=== PATIENT | female | born 1960 | race African-American/Black ===

== ENCOUNTER 2016-09-15 01:23 | Inpatient (IN) | payer OTHER ==
[2016-09-15] VITALS (7 sets, daily range): BP systolic 129–194; BP diastolic 65–95
[~2016-09-15] VITALS: Ht 167.6 cm; Wt 72.3 kg
--- NOTE | ~2016-09-15 | H ---
[facility] [place] [address] HISTORY AND PHYSICAL Name: JOSE BROWN Fariha Room #: 210-P [facility] IN .R.#: [id number] Admission: 09/15/16 Attend Phys: Shobha Eng MD Discharge: 09/19/16 Date of : 56 Report #: [id number] THIS REPORT FOR: //name// CC: Juana Eng DATE OF SERVICE: 09/15/2016 ATTENDING PHYSICIAN: Dr. Shobha Eng. PRIMARY CARE PHYSICIAN: Dr. Juana Tolentino. CHIEF COMPLAINT: Shortness of air and dizziness. HISTORY OF PRESENT ILLNESS: The patient is a 56-year-old female who came into the ER complaining of shortness of air and "panic attack". She says she started feeling poorly about 2 days ago. She was feeling dizzy all the time she would stand. She was having trouble breathing specifically whenever she would lie down. She denies any prior history of congestive heart failure. She is complaining of some neck tightness and upper back pain. She feels it came on because she has been having to lean forward to breathe easier. She has some episodes of nausea and vomiting with her dizziness in the last few days. Denies any cough or fevers. She denies any underlying lung disease and has never required home oxygen. She also has noted left leg swelling as well as some swelling up into her face which is new over the last month. She does take oral Lasix daily. He left leg has been painful and worse with trying to ambulate. She denies any prior history of DVT or PE. In the ER, she was given Lasix and has had only a small amount of urine output since. She is denying any chest pain. She does have a history of bilateral kidney transplant and her kidney function has been stable. PAST MEDICAL HISTORY: Left CVA, end-stage renal disease with bilateral kidney transplant, hypertension, diabetes type 1 which resolved when she got her kidney and pancreas transplant, GERD, hypothyroidism, peripheral neuropathy. PAST SURGICAL HISTORY: Bilateral kidney and pancreas transplant in 2004, left arm shunt, left breast biopsy, which was negative, appendectomy, tonsillectomy, , abdominal hernia repair. ALLERGIES: PENICILLIN AND MORPHINE. HOME MEDICATIONS: Levothyroxine 0.025 mg daily, Cozaar 25 mg daily, doxazosin 1 mg daily, clonidine 0.1 mg b.i.d., amlodipine 10 mg daily, Lasix 40 mg daily, Prempro 1 tab daily, Plavix 75 mg daily, aspirin 81 mg daily, calcium carbonate 1500 mg daily, prednisone 5 mg daily, Lipitor 10 mg daily, Pancrease one capsule q.i.d., Nexium 40 mg daily, Myfortic 540 mg b.i.d. and magnesium oxide [address] [address] HISTORY AND PHYSICAL Name: JOSE BROWN Room #: 210-P [facility] IN M.R.#: [id number] Admission: 09/15/16 Attend Phys: Shobha Eng MD Discharge: 09/19/16 Date of : 56 Report #: [id number]. SOCIAL HISTORY: The patient is a current smoker, smoking half pack of cigarettes per day. She has been smoking since the age of 13. Denies any alcohol or drug use. She lives at home with her 2 granddaughters that she adopted, one of which is special needs. FAMILY HISTORY: Her mother is alive and healthy at the age of 83, her father is alive in his 80s, but she does not know much about his medical history. REVIEW OF SYSTEMS: Twelve point review of systems was reviewed with the patient, otherwise negative unless stated in the HPI. PHYSICAL EXAMINATION: GENERAL: The patient is an alert female in no acute distress. VITAL SIGNS: Temperature is 36.6, heart rate 115, respirations 28, blood pressure is 194/84, oxygen 97% on 2 liters. HEENT: PERRLA. She does have some periorbital edema. Oral mucosa is pink and moist. NECK: Supple. There is no JVD noted. No cervical lymphadenopathy. CARDIOVASCULAR: Normal S1, S2. No murmurs, rubs or gallops. RESPIRATORY: Breath sounds are clear, bilateral upper lobes. She does have some fine crackles in bilateral bases. Breathing is nonlabored. ABDOMEN: Soft and is mildly tender throughout with positive bowel sounds. VASCULAR: She does have 2+ left pedal and lower extremity edema and some tenderness to the left calf. Pedal pulse is not palpable but her left foot is warm to touch. NEUROLOGIC: The patient is alert and oriented x 3. Speech is clear. She is moving all extremities equally. No focal weakness noted. SKIN: Intact. No rashes or lesions. LABORATORY AND DIAGNOSTIC DATA: WBC is 9.8, hemoglobin 12.8 and platelets 186. Sodium is 138, potassium 3.3, BUN 14, creatinine 1.5, glucose is 108, magnesium 1.5. LFTs are within normal limits. Troponin was elevated at 0.11. BNP is 10,995. INR 1.1. D-dimer is 0.74. UA is negative. Chest x-ray showed minimal vascular congestion and V/Q scan showed probability for PE. ASSESSMENT AND PLAN: 1. Acute fluid overload, question if this is new onset congestive heart failure. She does have significantly elevated BNP and some vascular congestion on chest x-ray. She was given a dose of IV Lasix in the ER. We will continue with few more doses of IV Lasix and check an echocardiogram. 2. Mildly elevated troponin, this is likely elevated due to congestive heart failure, we will check 2 more sets of enzymes and if her troponins increasing, we will consult Cardiology. She was given a dose of therapeutic Lovenox in the ER. She is denying any chest pain. Also check an echocardiogram. [facility] [address] [place] [address] HISTORY AND PHYSICAL Name: KEVINJOSE D Room #: 210-P [facility] IN [facility].#: [id number] Admission: 09/15/16 Attend Phys: Shobha Eng MD Discharge: 09/19/16 Date of : 56 Report #: [id number] 3. Left lower extremity edema with elevated D-dimer, we will check venous Dopplers to rule DVT. V/Q scan was negative for PE. She does have some claudication symptoms so we will also check arterial Dopplers on the left. 4. History of bilateral renal and pancreas transplants. Continue immunosuppressants and prednisone. She normally follows with Dr. Banks at [facility]. 5. Hypertension. Blood pressure was very elevated, likely due to fluid overload. We will continue with Lasix for diuresis and resume home medicines. She has had some recent blood pressure medication changes by her PCP. 6. Hypothyroidism. Check TSH level and continue Synthroid. 7. Hypokalemia and hypo-magnesium, electrolytes are being replaced. Follow labs. 8. Tobacco abuse. The patient has been advised to quit. 9. Deep vein thrombosis prophylaxis: Start Lovenox. We will continue to follow the patient closely throughout the hospitalization and make changes based on clinical status. <ELECTRONICALLY SIGNED> By: PRESTON Gaspar 09/23/16 0615 0848 1012 PRESTON Gaspar /nt
--- NOTE | ~2016-09-15 | 2DMMODE ---
[facility] [employer] [address] 2 D/M-MODE ECHOCARDIOGRAM Name: JOSE BROWN Room #: 210-P [facility] IN [facility]#: [id number] Admission: 09/15/16 Attend Phys: Shobha Eng MD Discharge: Date of : 56 Date of Service: 09/15/16 1646 Report #: [id number] THIS REPORT FOR: //name// APPROVED REPORT EXAM: Comprehensive 2D, Doppler, and color-flow Echocardiogram Patient Location: Echo lab/Inpatient Room 210 Blood Pressure: 167/95 mmHg HR: 96 bpm Other Information Study Quality: Adequate Indications Question CHF exacerbation. Hx: CVA, DM, HTN, tobacco abuse 2D Dimensions RVDd: 26.86 mm LVEF(%): 44.18 (>50%) IVSd: 13.82 (7-11mm) LVOT Diam: 18.98 (18-24mm) LVDd: 52.19 mm PWd: 13.58 (7-11mm) Ascending Aorta: 24.89 mm LVDs: 40.69 (25-40mm) Aortic Root: 27.00 mm Lyn's LVEF: 44.18 % Volumes Left Atrial Volume (Systole) Single Plane 4CH: 54.04 mL Single Plane 2CH: 58.06 mL LA ESV Index: 32.00 mL/m2 Aortic Valve AoV Peak Dann.: 1.67 m/s AO Peak Gr.: 11.16 mmHg LV Max P.23 mmHg LV Max: 1.25 m/s Mitral Valve MV PHT: 59.80 ms MV E Max Dann.: 1.37 m/s E/A Ratio: 1.1 MV A Dann.: 1.23 m/s MV Decel. Time: 206.20 ms Pulmonary Valve PV Peak Dann.: 1.06 m/s PV Peak Gr.: 4.53 mmHg [facility] [employer] [address] 2 D/M-MODE ECHOCARDIOGRAM Name: JOSE BROWN Room #: 210-P [facility] IN ..#: [id number] Admission: 09/15/16 Attend Phys: Shobha Eng MD Discharge: Date of : 56 Date of Service: 09/15/16 1646 Report #: [id number] Tricuspid Valve RAP Estimate: 5.00 mmHg Left Ventricle The left ventricle is normal size. Regional wall motion abnormalities are noted. Mild to moderate concentric left ventricular hypertrophy. Left ventricular systolic function is mildly decreased. LVEF is 40-45%. Grade II - pseudonormal filling dynamics. Right Ventricle The right ventricle is normal size. The right ventricular systolic function is normal. Atria The left atrium size is normal. The right atrium size is normal. Aortic Valve Aortic valve is mildly thickened and calcified. No aortic regurgitation is present. There is no aortic valvular stenosis. Mitral Valve Mitral valve leaflets are mildly thickened. Moderate mitral regurgitation. Tricuspid Valve The tricuspid valve is normal in structure. There is no tricuspid valve regurgitation noted. Pulmonic Valve The pulmonary valve is normal in structure. Trace pulmonic regurgitation. Great Vessels The aortic root is normal in size. The ascending aorta is normal in size. IVC is normal in size and collapses >50% with inspiration. Pericardium Small anterior pericardial effusion noted. <Conclusion> The left ventricle is normal size. Mild to moderate concentric left ventricular hypertrophy. [facility] [place] [address] 2 D/M-MODE ECHOCARDIOGRAM Name: JOSE BROWN Room #: 210-P [facility] IN .R.#: [id number] Admission: 09/15/16 Attend Phys: Shobha Eng MD Discharge: Date of : 56 Date of Service: 09/15/161645 Report #: [id number] LVEF is 40-45%. Aortic valve is mildly thickened and calcified. Mitral valve leaflets are mildly thickened. Moderate mitral regurgitation. Trace pulmonic regurgitation. <ELECTRONICALLY SIGNED> By: Ernesto Hinojosa MD 09/15/161645 45 45 Ernesto Hinojosa MD /INF
--- NOTE | ~2016-09-15 | CATHLAB ---
[facility] [employer] [place] [address] INVASIVE PROCEDURE REPORT Name: JOSE BROWN Room #: 210-P [facility] IN [facility]#: [id number] Admission: 09/15/16 Attend Phys: Shobha Eng MD Discharge: 09/19/16 Date of : 56 Date of Service: 09/17/16 1144 Report #: [id number] THIS REPORT FOR: //name// CC: Juana Eng DATE OF SERVICE: 09/17/2016 INDICATIONS: Positive troponins, ischemic cardiomyopathy. Full risks, benefits and alternatives of cardiac catheterization were explained to the patient. All questions were answered. Informed consent was obtained. There was a 5-Guamanian sheath in the right femoral artery, inserted by Dr. Escobedo for his peripheral angiogram procedure. CORONARY ANATOMY: The left main is a short segment, with no flow-limiting lesions. The LAD has a severe stenosis in the proximal LAD, extending into the mid segment of the LAD. The blockage is approximately 70%. The second diagonal artery is a small caliber vessel with severe disease in the proximal segment, 70%. The first obtuse marginal artery is a moderate size caliber vessel with a severe stenosis in the proximal segment, 70%. The left circumflex artery has a severe stenosis in the proximal segment, at least 70%. The RCA is a dominant vessel with a total occlusion in the mid segment. The distal RCA and its branches are filled via collateral circulation from the left coronary artery. The LVEDP is approximately 36 mmHg. There is no gradient across the outflow tract. A ventriculogram was not performed in view of an elevated creatinine level. IMPRESSION: 1. Severe 3-vessel disease. 2. Mild to moderate left ventricular dysfunction. 3. Recommend a surgical consultation. <ELECTRONICALLY SIGNED> By: Yair Crandall MD 09/21/16 0758 1144 1849 Yair Crandall MD /nt
--- NOTE | ~2016-09-15 | HC ---
[facility] [place] [address] CONSULTATION Name: KEVINJOSE Room #: 210-P [facility] IN ..#: [id number] Admission: 09/15/16 Attend Phys: Shobha Eng MD Discharge: Date of : 56 Report #: [id number] THIS REPORT FOR: //name// CC: Dell Eng DATE OF ADMISSION: 09/15/2016. REASON FOR CONSULTATION: Simultaneous kidney pancreas transplant with patient in respiratory distress. HISTORY OF PRESENT ILLNESS: This 56-year-old female has a longstanding history of type 1 diabetes mellitus dating to age 4. She was managed with insulin for a long period of time. She underwent simultaneous pancreas kidney transplant at [facility] in 2004. She has done well since that time with good attention to medications, diet and general medical management. The patient reports that she developed shortness of breath with an acute anxiety syndrome on the night of admission and presented to the Emergency Room for evaluation. She was found to have moderate vascular congestion on chest x-ray and was admitted for further evaluation and treatment. The patient denies recent renal difficulties. She reports that she has been watching her diet carefully as is her practice. PAST MEDICAL HISTORY: Is otherwise remarkable as described above for K 2004. She has a longstanding history of hypertension, she has type 1 diabetes mellitus dating to the age of 4. She has chronic constipation. She has had a previous CVA and has known hypothyroidism as well as peripheral neuropathy. She has undergone previous left breast biopsy with negative findings. PAST SURGICAL HISTORY: She is status post previous appendectomy, tonsillectomy, and abdominal hernia repair. ALLERGIES: Reported to PENICILLIN AND MORPHINE. MEDICATIONS: On admission include tacrolimus 5 mg b.i.d., prednisone 5 mg daily, Myfortic 540 mg daily, Cozaar 25 mg daily, doxazosin 1 mg daily, clonidine 0.1 mg b.i.d., amlodipine 10 mg daily, Lasix 40 mg daily, Prempro 1 tablet daily, Plavix 75 mg daily, aspirin 81 mg daily, calcium carbonate 1500 mg daily, Lipitor 10 mg daily, Pancreas one capsule q.i.d., Nexium 40 mg daily, Magnesium oxide 400 mg daily. PERSONAL HISTORY AND SOCIAL HISTORY: The patient is an ongoing smoker, describes half pack of cigarettes daily. She denies alcohol or substance abuse. [address] [address] CONSULTATION Name: NIEVES BROWNTRAVIS Fried Room #: 210-P [facility] IN ..#: [id number] Admission: 09/15/16 Attend Phys: Shobha Eng MD Discharge: Date of : 56 Report #: [id number] She lives with her 2 granddaughters. FAMILY HISTORY: Remarkable for her mother being alive and healthy at the age of 83. REVIEW OF SYSTEMS: Is remarkable for shortness of breath and anxiety as described in the history of present illness. She denies fevers, chills, sweats, productive cough, hemoptysis, chest pain, nausea, vomiting, diarrhea or constipation. PHYSICAL EXAMINATION: GENERAL: Reveals a well-developed, well-nourished female appearing her stated age, in no acute distress. VITAL SIGNS: Blood pressure 167/95, temperature 98.3, pulse 99, respirations 18. SKIN: Warm and dry. There is a trace pitting pretibial edema bilaterally. There is no evidence of palpable cords. EXTREMITIES: There is no clubbing, cyanosis or adenopathy present. HEENT: The head is normocephalic and atraumatic. The sclerae are white. Conjunctivae are not injected. Pharynx is benign. NECK: Supple. LUNGS: Leigh reveal scattered rhonchi without evidence of consolidation or crackles heard. CARDIOVASCULAR: Reveals a regular rate and rhythm without rub. ABDOMEN: Soft and nontender without palpable mass or organomegaly. The transplant is of normal character in the right lower quadrant without tenderness. NEUROLOGIC: Reveals the patient to be alert and cooperative with a nonfocal exam. LABORATORY STUDIES: Available at the time of evaluation include sodium 138, potassium 3.3, chloride 102, CO2 22, BUN 14, creatinine 1.5, glucose 108, albumin 3.5, troponin 0.11. White blood cell count 9800, hemoglobin 12.8, hematocrit 38.0, platelet count 186,000. Urinalysis reveals clear yellow urine, specific gravity less than 1.005, pH 6, negative for glucose, ketones, bilirubin and blood. ASSESSMENT: 1. Shortness of breath with chest x-ray evidence of modest vascular congestion and minimal peripheral edema. The patient's renal function is relatively stable and she reports good dietary attention to sodium restriction. I would be concerned given her multiple risk factors about the possibility of occult coronary artery disease given her longstanding risk years. Echocardiogram is pending at the time of this dictation. I find no major physical examination abnormalities of her cardiovascular system at this point. 2. Status post simultaneous kidney pancreas transplant. [address] [address] CONSULTATION Name: JOSE BROWN Room #: 210-P [facility] IN M.R.#: [id number] Admission: 09/15/16 Attend Phys: Shobha Eng MD Discharge: Date of : 56 Report #: [id number] 3. Longstanding hypertension. 4. Diabetes mellitus since age 4. 5. Status post previous cerebrovascular accident. PLAN: Cardiac evaluation as above. We will administer intravenous diuretic therapy and monitor her renal function. She is receiving potassium replacement at this time. I will continue to monitor her transplant organ function and I have confirmed her immunosuppression regimen with the transplant institute at [facility]. Please see orders. <ELECTRONICALLY SIGNED> By: Romel Lee MD 09/16/16 1303 1104 1210 Romel Lee MD /nt
--- NOTE | ~2016-09-15 | HC ---
[facility] [place] [address] CONSULTATION Name: JOSE BROWN Room #: 210-P [facility] IN ..#: [id number] Admission: 09/15/16 Attend Phys: Shobha Eng MD Discharge: Date of : 56 Report #: [id number] THIS REPORT FOR: //name// CC: Juana Eng DATE OF SERVICE: 09/18/2016 We were asked to see the patient by Dr. Crandall for coronary artery disease. HISTORY OF PRESENT ILLNESS: The patient is a 56-year-old who was admitted on 09/15/2016 with progressive shortness of breath and fatigue. The patient does not have a history of angina. The patient states that over the last 2 weeks, she has noted shortness of breath associated with orthopnea and this was progressively worse leading to Emergency Room admission on 09/15/2016. Cardiac catheterization was done ultimately and this showed severe 3-vessel coronary artery disease including 70% LAD and diagonal lesions, 70% first marginal and total occlusion of the right coronary artery. PAST MEDICAL HISTORY: Significant for type 1 diabetes, which led to end-stage renal disease, the patient is status post kidney and pancreas transplant at [facility] [address] Elizondo. MEDICATIONS: Include losartan, aspirin, calcium, Lasix, magnesium, Nexium, prednisone, nystatin, Plavix, atorvastatin, clonidine, Cardura, amlodipine, levothyroxine, Prempro and Prograf and tacrolimus, I do not know whether that is the same as Prograf or not. ALLERGIES: PENICILLIN causes rash and MORPHINE causes nausea. FAMILY HISTORY: Mother is alive in her 80s. Father is alive in his 80s and they appeared to be healthy. SOCIAL HISTORY: The patient is single, half pack a day smoker, no alcohol. REVIEW OF SYSTEMS: CONSTITUTIONAL: As mentioned, problems with fatigue and problems with sleeping at night. HEENT: No vision changes, has had headaches. No vertigo. No hearing problems. RESPIRATORY: Shortness of breath with exertion and with 2-pillow orthopnea. CARDIAC: Denies chest pain to me. No palpitations. SKIN: No rash or infection. ENDOCRINE: No hot or cold intolerance. GASTROINTESTINAL: Has had nausea and constipation. No vomiting or diarrhea. GENITOURINARY: No frequency, no urgency. [address] [address] CONSULTATION Name: JOSE BROWN [facility] [id number] Admission: 09/15/16 Attend Phys: Shobha Eng MD Discharge: Date of : 56 Report #: [id number] NEUROLOGIC: No motor or sensory dysfunction. PSYCHIATRIC: No hallucinations or anxiety. MUSCULOSKELETAL: Denies joint and bone pain. IMMUNOLOGIC: No lupoid rash. No lupoid. No rheumatoid arthritis. PHYSICAL EXAMINATION: GENERAL: The patient is currently awake and alert, very pleasant. VITAL SIGNS: Blood pressure 148/74, heart rate 94, respiratory rate 18, temperature 36.8, heart rate 88. HEENT: No scleral icterus, no arcus. Pupils are round, equal. Gaze conjugate, normocephalic. No oral injection. No nasal drainage. NECK: No lymphadenopathy, no bruit. CHEST: Clear to auscultation. HEART: Rhythm regular. ABDOMEN: Soft, no mass, no tenderness. EXTREMITIES: No obvious clubbing, cyanosis or edema. 2+ dorsalis pedis pulses on the right and 1+ on the left. PSYCHIATRIC: Mood is neither artificially elevated nor depressed, shows insight into problem. MUSCULOSKELETAL: No bone or joint deformity or dyssymmetry. NEUROLOGIC: No motor or sensory deficit, oriented and appropriate. IMPRESSION AND PLAN: The patient has important 3-vessel coronary artery disease and presents with diabetes and heart failure. I have discussed coronary artery bypass surgery with the ultimate recommendation for treatment. Risks and details of this were discussed. Options and alternatives were reviewed. The patient is on Plavix and we would prefer an interval off of this before proceeding with surgery. Obviously, we will need to continue the patient's immunosuppressive regimen. All of this was understood by the patient who seems to accept the concept of surgery and wishes to wait a reasonable amount of time. Thank you for the consult. By: 1516 1629 Rajendra Lambert MD /nt
--- NOTE | ~2016-09-15 | EKG ---
[address] [address] ELECTROCARDIOGRAM REPORT Name: JOSE BROWN Room #: 210-P AD[facility] IN .R.#: [id number] Admission: 09/15/16 Attend Phys: Shboha Eng MD Discharge: Date of : 56 Report #: [id number] THIS REPORT FOR: //name// [facility] ED Test Date: 2016-09-15 Test Time: 01:35:53 Pat Name: JOSE BROWN Department: Room: 210 Gender: F Club Attendant: RAMON : 1960 Requested By: Panchito Ibarra Order Number: [id number] MD: Abraham Braun Measurements Intervals [place] Rate: 108 P: 60 [place]: 132 QRS: 89 QRSD: 92 T: 29 QT: 356 QTc: 477 Interpretive Statements Sinus tachycardia Borderline T wave abnormalities Baseline wander in lead(s) V6 No previous ECG available for comparison Electronically Signed On 09-18-2016 12:49:03 CDT by Abraham Braun [email or web address] <ELECTRONICALLY SIGNED> By: Abraham Braun MD 09/18/16 1249 013 013 Abraham Braun MD /RITCHIE
[~2016-09-15 01:23] MED LIST: AMITIZA PO; AMLODIPINE; ASPIR 8181 MG PO; BACTRIM DS TAB1 EACH PO; CLARITIN10 MG PO; CLONIDINE; CLONIDINE0.1 PO; GUAIFENESIN-CO120 ML PO; IBUPROFEN 600600 M1 PO; LASIX 40 MG TAB40 M2 PO; LEVOTHYROXIN0.025 MG PO; LIPITOR10 MG PO; LISINOPRIL10 MG PO; MAGNESIUM OXID400 MG PO; MYCOPHENOLIC ACID PO; NASONEX17 GM NASAL; NEURONTIN 300300 M1 PO; NEXIUM40 M2 PO; NORCO 5-325 TA1 EACH PO; NORVASC10 MG PO; PERTZYE PO; PLAVIX 75 MG TA75 M1 PO; PREDNISONE 5 MG5 M1 PO; PREMPRO 0.625-1 EACH PO; TUMS PO; VICODIN 5-5001 EACH PO; ZOFRAN4 MG PO; ZPAK PO; [UNRECOGNIZED DRUG - CODE] PO
[2016-09-15 02:05] LABS: ABSOLUTE NEUTROPHILS 6.8 thou/uL (1.4-8.2); BASOPHILS 1.2 % (0.0-2.0); EOSINOPHILS 0.8 % (0.0-3.0); HEMOGLOBIN 12.8 gm/dL (12.0-15.0); LYMPHOCYTES 19.7 % (24.0-44.0); MCH 29.3 pg (26.0-34.0); MCHC 33.8 g/dL (28.0-37.0); MCV 86.6 fL (80.0-100.0); MONOCYTES 8.6 % (1.0-8.0); PLATELET COUNT 186 thou/uL (150-400); POLYS 69.7 % (36.0-66.0); RBC 4.39 mil/uL (4.20-5.00); RDW 15.7 % (10.5-14.5); WBC 9.8 thou/uL (4.0-11.0)
[2016-09-15 02:07] LABS: MANUAL DIFF NO
[2016-09-15 02:18] LABS: APTT 28.9 Seconds (24.5-32.8); INR 1.1; PROTIME 10.9 Seconds (9.3-11.4)
[2016-09-15 02:56] LABS: ALBUMIN 3.5 g/dL (3.4-5.0); CALCIUM 8.8 mg/dL (8.5-10.1); CK-MB MASS 1.8 ng/mL (<0.5-3.6); CREATININE 1.5 mg/dL (0.6-1.3); MAGNESIUM 1.5 mg/dL (1.8-2.4); POTASSIUM 3.3 mmol/L (3.5-5.1); TOTAL BILIRUBIN 0.5 mg/dL (<0.1-1.0); TOTAL PROTEIN 6.8 g/dL (6.4-8.2); TROPONIN-I 0.11 ng/mL (<0.04-0.07)
[2016-09-15 03:19] LABS: URINE BILIRUBIN NEGATIVE (Negative); URINE BLOOD NEGATIVE (Negative); URINE COLOR YELLOW; URINE GLUCOSE-RANDOM* NEGATIVE (Negative); URINE KETONES NEGATIVE (Negative); URINE LEUKOCYTES-REFLEX NEGATIVE (Negative); URINE PROTEIN (DIPSTICK) NEGATIVE (Negative); URINE SPECIFIC GRAVITY <= 1.005 (1.003-1.035); URINE UROBILINOGEN 0.2 E.U./dl (0.2-1.0)
[2016-09-15] MEDS ORDERED: CALCIUM500 MG PO (06:06)
[2016-09-15] MEDS ORDERED: COZAAR 25 MG TA25 M1 PO (06:23)
[2016-09-15] MEDS ORDERED: CARDURA4 MG PO (06:25)
[2016-09-15 12:10] LABS: CHOLESTEROL 202 mg/dL (<200); HDL CHOLESTEROL 97 mg/dL (>40); LDL CHOLESTEROL 79 mg/dL (<100); TC:HDL 2.1 Ratio (Not establshd); TRIGLYCERIDE 133 mg/dL (<150); VLDL 27 mg/dL (<40)
[2016-09-15 15:27] LABS: MAGNESIUM 1.9 mg/dL (1.8-2.4); POTASSIUM 3.9 mmol/L (3.5-5.1); TROPONIN-I 0.16 ng/mL (<0.04-0.07)
[2016-09-16 03:52] VITALS: BP 156/91
[2016-09-16 03:55] LABS: ALBUMIN 3.2 g/dL (3.4-5.0); CALCIUM 8.8 mg/dL (8.5-10.1); CREATININE 1.6 mg/dL (0.6-1.3); MAGNESIUM 1.8 mg/dL (1.8-2.4); PHOSPHORUS 4.2 mg/dL (2.5-4.9); POTASSIUM 3.8 mmol/L (3.5-5.1)
[2016-09-16 04:08] LABS: HEMATOCRIT 39.5 % (37.0-47.0); HEMOGLOBIN 13.1 gm/dL (12.0-15.0); MCH 28.8 pg (26.0-34.0); MCHC 33.1 g/dL (28.0-37.0); MCV 87.2 fL (80.0-100.0); RBC 4.53 mil/uL (4.20-5.00); RDW 15.9 % (10.5-14.5); WBC 6.9 thou/uL (4.0-11.0)
[2016-09-16 07:14] VITALS: BP 159/85
[2016-09-16 10:29] VITALS: BP 157/79
[2016-09-16 15:05] VITALS: BP 172/85
[2016-09-16 20:10] VITALS: BP 159/95
[2016-09-17] VITALS (14 sets, daily range): BP systolic 16–193; BP diastolic 77–887
[2016-09-17 04:00] LABS: CALCIUM 9.2 mg/dL (8.5-10.1); CREATININE 1.6 mg/dL (0.6-1.3); POTASSIUM 3.6 mmol/L (3.5-5.1)
[2016-09-17 04:27] LABS: HEMATOCRIT 39.6 % (37.0-47.0); HEMOGLOBIN 13.2 gm/dL (12.0-15.0); MCH 29.1 pg (26.0-34.0); MCHC 33.4 g/dL (28.0-37.0); MCV 87.1 fL (80.0-100.0); RBC 4.55 mil/uL (4.20-5.00); RDW 15.6 % (10.5-14.5); WBC 7.4 thou/uL (4.0-11.0)
[2016-09-18] VITALS (7 sets, daily range): BP systolic 148–166; BP diastolic 67–86
[2016-09-18 04:15] LABS: ALBUMIN 3.3 g/dL (3.4-5.0); CALCIUM 8.9 mg/dL (8.5-10.1); CREATININE 1.6 mg/dL (0.6-1.3); POTASSIUM 3.5 mmol/L (3.5-5.1)
[2016-09-18 04:35] LABS: HEMATOCRIT 37.7 % (37.0-47.0); HEMOGLOBIN 12.5 gm/dL (12.0-15.0); MCH 28.9 pg (26.0-34.0); MCHC 33.2 g/dL (28.0-37.0); MCV 87.1 fL (80.0-100.0); RBC 4.32 mil/uL (4.20-5.00); RDW 15.8 % (10.5-14.5); WBC 7.8 thou/uL (4.0-11.0)
[2016-09-19] VITALS (7 sets, daily range): BP systolic 135–161; BP diastolic 68–87
[2016-09-19 03:05] LABS: ABSOLUTE NEUTROPHILS 4.6 thou/uL (1.4-8.2); BASOPHILS 0.9 % (0.0-2.0); EOSINOPHILS 1.5 % (0.0-3.0); HEMOGLOBIN 11.6 gm/dL (12.0-15.0); LYMPHOCYTES 21.5 % (24.0-44.0); MCHC 33.3 g/dL (28.0-37.0); MCV 87.3 fL (80.0-100.0); PLATELET COUNT 152 thou/uL (150-400); POLYS 64.1 % (36.0-66.0); RBC 4.01 mil/uL (4.20-5.00); RDW 15.6 % (10.5-14.5); WBC 7.1 thou/uL (4.0-11.0)
[2016-09-19 03:10] LABS: MANUAL DIFF NO
[2016-09-19 03:23] LABS: ALBUMIN 3.2 g/dL (3.4-5.0); CALCIUM 8.5 mg/dL (8.5-10.1); CREATININE 1.8 mg/dL (0.6-1.3); MAGNESIUM 1.8 mg/dL (1.8-2.4); PHOSPHORUS 4.3 mg/dL (2.5-4.9); POTASSIUM 3.6 mmol/L (3.5-5.1)
[2016-09-19] MEDS ORDERED: K-DUR 20 MEQ T20 MEQ PO (18:00)
[2016-09-19] MEDS ORDERED: PROTONIX40 M1 PO (18:00)
[2016-09-19] MEDS ORDERED: COLACE 100 MG100 MG PO (18:00)
[2016-09-19] MEDS ORDERED: LASIX 40 MG TAB40 M1 PO (18:00)
== END 2016-09-19 19:30 | disposition home or self-care (01) | DRG 287 ==
LOC: ER 01:23 → 2N 04:47 → EROBS 04:47 → 2N 05:23
PROVIDERS: Emergency Medicine; Family Medicine; Internal Medicine Nephrology; Nurse Practitioner Adult Health; Nurse Practitioner Gerontology
PROC: 4A023N7 Measurement of Cardiac Sampling and Pressure, Left Heart, Percutaneous Approach (ICD-10-PCS; principal; 2016-09-17)
PROC: B2111ZZ Fluoroscopy of Multiple Coronary Arteries using Low Osmolar Contrast (ICD-10-PCS; principal; 2016-09-17)
DX: I11.0 Hypertensive heart disease with heart failure (principal); Z94.0 Kidney transplant status; Z94.83 Pancreas transplant status; E87.6 Hypokalemia; E83.42 Hypomagnesemia; M79.89 Other specified soft tissue disorders; E03.9 Hypothyroidism, unspecified; E78.5 Hyperlipidemia, unspecified; K59.09 Other constipation; E10.22 Type 1 diabetes mellitus with diabetic chronic kidney disease; I50.9 Heart failure, unspecified; E10.42 Type 1 diabetes mellitus with diabetic polyneuropathy; F17.210 Nicotine dependence, cigarettes, uncomplicated; K21.9 Gastro-esophageal reflux disease without esophagitis; I25.10 Atherosclerotic heart disease of native coronary artery without angina pectoris; E87.70 Fluid overload, unspecified; I16.0 Hypertensive urgency; Z79.4 Long term (current) use of insulin; Z88.6 Allergy status to analgesic agent; Z88.0 Allergy status to penicillin; Z90.49 Acquired absence of other specified parts of digestive tract; I50.23 Acute on chronic systolic (congestive) heart failure
CPT/HCPCS: 10081

== ENCOUNTER → 2018-04-05 | Outpatient (CLI) | payer OTHER ==
[~2018-04-05] VITALS: Ht 170.2 cm; Wt 78.9 kg
[~2018-04-05] MED LIST changes: +CALCIUM500 MG PO; +CARDURA1 MG PO; +CARDURA4 MG PO; +COLACE 100 MG100 MG PO; +COREG25 MG PO; +COZAAR 25 MG TA25 M1 PO; +K-DUR 20 MEQ T20 MEQ PO; +LASIX 40 MG TAB40 M1 PO; +MYFORTIC360 MG PO; +PROGRAF1 MG PO; +PROTONIX40 M1 PO; +VALGANCICLOVIR450 MG PO
--- NOTE | ~2018-04-05 | HPC ---
[facility] [address] [place] [address] PAIN MANAGEMENT CONSULTATION Name: JOSE BROWN Room #: REG [facility] [id number] Admission: 04/05/18 Attend Phys: Danny Brady DO Discharge: Date of : 56 Report #: [id number] THIS REPORT FOR: //name// CC: Danny HIGGINBOTHAM DATE OF SERVICE: 04/05/2018 CHIEF COMPLAINT: Right upper buttock pain. HISTORY OF PRESENT ILLNESS: As you know, the patient is a 57-year-old female with longstanding history of back pain issues with mainly right upper buttock and posterolateral thigh pain that is now the main source of her symptoms. The patient sought evaluation through [facility]. It was determined the patient was suffering from what appeared to be right sacroiliac joint dysfunction. Pain continued to worsen with certain activities. She states her balance has been off and she is noticing some weakness in the right leg. Due to lack of improvement with conservative treatment, the patient was referred to our clinic to discuss undergoing a diagnostic right SI joint block assuming this is effective, then moving forward with potential surgical options. The patient has been referred to our service to discuss this treatment option. The patient indicates today pain is rhythmic and periodic. Describes the pain as burning, shooting, aching, throbbing, pounding, sharp and stabbing. Places current pain score 8/10, daily average at 8/10, worst pain has been is 10/10. The patient states her pain is exacerbated with walking and standing; improves with sitting, lying down, warm compresses and baths. She has been referred to our service to trial a right SI joint diagnostic block to determine if her symptoms are improved for potential surgical options. PAST MEDICAL HISTORY: 1. Hypertension. 2. Hypothyroidism. 3. Gastroesophageal reflux disease. 4. History of cerebrovascular accident. 5. Kidney failure, status post kidney and pancreas transplant. 6. Dyslipidemia. 7. Immunosuppression. 8. Polyneuropathy. 9. Irritable bowel syndrome. 10. Coronary artery disease status post myocardial infarction. 11. Anemia. [facility] [address] [place] [address] PAIN MANAGEMENT CONSULTATION Name: JOSE BROWN [facility] #: [facility] [id number] Admission: 04/05/18 Attend Phys: Danny Brady DO Discharge: Date of : 56 Report #: [id number] PAST SURGICAL HISTORY: 1. Appendectomy. 2. Breast lumpectomy. 3. Exploratory laparotomy. 4. Kidney and pancreas transplant. 5. Incisional hernia repair. 6. Recurrent incisional hernia repair. 7. Coronary artery bypass grafting. 8. Tonsillectomy. 9. Tubal ligation. 10. section. SOCIAL HISTORY: The patient denies tobacco. She is a former smoker, smoking 1 pack every 2 days since the age of 13, quit in 2017. She denies IV or illicit drug use. She reports herself on disability, has been so since 1998. She is not in the process of obtaining disability benefits nor is she in litigation in regards to pain. She is unaccompanied at today's visit. REVIEW OF SYSTEMS: Positive for weight gain, decrease in appetite, fatigue and weakness, frequent and recurrent headaches, heart trouble, shortness of breath with walking or lying flat, loss of appetite, changes in bowel movements, constipation, numbness and tingling sensations, history of stroke with some residual deficits, changes in hair and nail textures, thyroid disease, heat and cold intolerance, anemia, back pain, right upper buttock pain. All other review of systems negative per 12-point review of systems other than those listed in history of present illness. Pain impact score is 50/70 indicating severe interference of daily activities secondary to pain. ALLERGIES: PENICILLIN. CURRENT MEDICATIONS: Amlodipine 10 mg per day, aspirin 81 mg per day, atorvastatin 10 mg per day, carvedilol 25 mg 1-1/2 tabs twice a day, clonidine 0.2 mg twice a day, doxazosin 1 mg per day, omeprazole 40 mg per day, furosemide 40 mg per day, hydralazine 100 mg 3 times a day, levothyroxine 50 mcg per day, losartan 25 mg per day, magnesium oxide 400 mg once a day, Myfortic 360 mg per day, potassium chloride 20 mEq twice a day, prednisone 5 mg per day, Prograf 1 mg per day, valganciclovir 450 mg once a day. IMAGING: No imaging available. PQRS: The patient has known osteoarthritis of the low back, bilateral hips. She has no diagnosis of rheumatoid arthritis. She is placing pain intensity at 8/10. She is not a fall risk, has not had a fall in the last 3 months. She is not on blood thinners. She is treated for hypertension. She is not on any [facility] [address] [place] [address] PAIN MANAGEMENT CONSULTATION Name: JOSE BROWN Room #: REG MIT[facility] Chapman#: [id number] Admission: 04/05/18 Attend Phys: Danny Brady DO Discharge: Date of : 56 Report #: [id number] current opioids. She reportedly has a low risk of opioid abuse. Her functional assessment pain impact tool is 50/70, severe. PHYSICAL EXAMINATION: VITAL SIGNS: Blood pressure 135/58, pulse 64, respiratory rate 20 and unlabored. The patient is 100% on room air. Height 5 feet 7 inches tall, weight 174 pounds, BMI calculated 27.2. GENERAL: Well-developed, well-nourished, well-hydrated 57-year-old female, appears older than stated age, placing current pain score at 8/10. HEENT: Normocephalic, atraumatic. Pupils equal, round, reactive to light. Extraocular muscles are intact. Sclerae nonicteric without injection. NEUROLOGIC: Cranial nerves 2 through 12 grossly intact. Speech is fluent. The patient deemed a fair historian. LUNGS: Clear, no wheeze, rhonchi or rales. CARDIOVASCULAR: Regular. There is a 2/6 murmur noted. ABDOMEN: Soft, obese, nontender, nondistended, normoactive bowel sounds. EXTREMITIES: Show no clubbing, no cyanosis, no edema. MUSCULOSKELETAL: The patient has a reduction in range of motion of the lumbar spine. Pain is elicited with maneuvers such as lateral flexion and rotation. Muscle bulk and tone appears equal and symmetrical in lower extremities, though strength is 4+/5 in all muscle groups in the lower extremities, which appear to be due to deconditioning. Seated straight leg raising negative. Supine straight leg raising is positive for SI joint dysfunction on the right, negative left, no radicular component. There is palpatory tenderness over the right SI joint, negative left. Gait antalgic favoring right lower extremity over left. Seated position cause exacerbation of pain. ASSESSMENT: 1. Right sacroiliac joint dysfunction. 2. Chronic low back pain. 3. Myofascial pain. 4. Chronic intractable pain. PLAN: 1. The patient has been referred to our clinic to trial a diagnostic right sacroiliac joint block under fluoroscopic guidance. If this is successful at alleviating the patient's symptoms, plans are to move forward with possible surgical fusion. The patient has been referred to our clinic by nurse practitioner, Anitra Loya from the [facility] to undergo this procedure. She comes to us today with a documentation requesting this SI joint diagnostic block as well as paperwork the patient will need to fill out over the next hour to 2 hours in regards to pain levels after the injection. The patient and I discussed at length today the risks and t he benefits of the requested diagnostic procedure. The following was discussed with the patient. We discussed the risks of this procedure, which include, but are not necessarily [address] [address] PAIN MANAGEMENT CONSULTATION Name: JOSE BROWN Fariha Room #: REG CL Adela#: [id number] Admission: 04/05/18 Attend Phys: Danny Brady DO Discharge: Date of : 56 Report #: [id number] limited to bleeding, bruising, infection, worsening of pain, no relief of pain, also risk of temporary or permanent muscle weakness, temporary or permanent nerve damage, possible paralysis, joint destruction and . The patient states she understood and wished to proceed. 2. No medication changes made at today's visit. The patient was provided paperwork that she is to fill out today in regards to today's block. This information then needs to be reported back to nurse practitionerShalini and Dr. Fermín Higginbotham at the [facility] in regards to whether or not they would move forward with fusion of the SI joint based on the diagnostic procedure. The patient will fill out the paperwork and deliver this to the [facility] at her earliest convenience. We wish to thank nurse practitionerShalini and Dr. Fermín Higginbotham for the referral of the patient to our clinic. We are hopeful the information provided from this diagnostic block will help direct her care more effectively. Again, we wish to thank you for the opportunity to see the patient in consultation. We will be returning her care to your capable hands. PROCEDURE NOTE DESCRIPTION OF PROCEDURE: Right sacroiliac joint injection for diagnostic block. This is the first procedure of the first series that the patient is undergoing. After obtaining written consent, the patient was taken back to the fluoroscopy suite and placed in a prone position with a pillow under the pelvis to decrease the lumbar lordosis. The skin of the gluteal-sacral area overlying the right sacroiliac joint was prepped and draped in an aseptic fashion. A medial to lateral oblique projection allowed separation of the anterior and posterior branches of the joint space. The skin and subcutaneous tissue overlying the target site of injection was anesthetized using 3 mL of 1% lidocaine. A 22-gauge 3-1/2-inch needle with a bent tip was directed into the inferior aspect of the sacroiliac joint using a posterior approach. A ____ giving way ____ at the needle hub was noted once the dorsal sacroiliac and interosseous ligaments were engaged. After negative aspiration for heme, a total of 0.5 mL of Omnipaque was injected, outlining the coin-shaped inferior recess of the joint. Provocation responses consisting of intense buttock pain were negative. After negative aspiration for heme, 2 mL of bupivacaine 0.5% was slowly injected. The needle was then retracted approximately care home and the needle track was flushed with 1 mL of 1% of lidocaine. Needle was then removed. A sterile bandage was placed over the injection site. There were no new sensory deficits present in the lower extremities. The heart rate, pulse oximetry and blood pressure were continuously monitored [facility] [address] [place] [address] PAIN MANAGEMENT CONSULTATION Name: JOSE BROWN Room #: REG CLI [facility].#: [id number] Admission: 04/05/18 Attend Phys: Danny Brady DO Discharge: Date of : 56 Report #: [id number] after the procedure. There were no apparent complications. The patient tolerated the procedure well and was carefully escorted to the recovery room in stable condition. The VAS was 8/10 before the procedure and 4/10 ten minutes after the procedure. After meeting discharge criteria, the patient was discharged home. <ELECTRONICALLY SIGNED> By: Danny Brady DO 04/08/18 0734 [id number] Danny Brady DO /nt
[2018-04-05 12:49] VITALS: BP 135/58
== END | disposition home or self-care (01) ==
LOC: PAIN 06:55
DX: M53.3 Sacrococcygeal disorders, not elsewhere classified (principal); M79.10 Myalgia, unspecified site; G89.29 Other chronic pain; E03.9 Hypothyroidism, unspecified; K21.9 Gastro-esophageal reflux disease without esophagitis; E78.5 Hyperlipidemia, unspecified; K58.9 Irritable bowel syndrome, unspecified; I25.10 Atherosclerotic heart disease of native coronary artery without angina pectoris; I25.2 Old myocardial infarction; D64.9 Anemia, unspecified; M16.0 Bilateral primary osteoarthritis of hip; I11.0 Hypertensive heart disease with heart failure; I50.9 Heart failure, unspecified; E11.42 Type 2 diabetes mellitus with diabetic polyneuropathy; Z90.49 Acquired absence of other specified parts of digestive tract; Z98.890 Other specified postprocedural states; Z98.51 Tubal ligation status; Z95.1 Presence of aortocoronary bypass graft; Z86.73 Personal history of transient ischemic attack (TIA), and cerebral infarction without residual deficits; Z87.448 Personal history of other diseases of urinary system; Z87.891 Personal history of nicotine dependence; Z88.0 Allergy status to penicillin; Z79.899 Other long term (current) drug therapy; Z79.82 Long term (current) use of aspirin; Z79.891 Long term (current) use of opiate analgesic; Z79.4 Long term (current) use of insulin